=== PATIENT | female | born 1975 | race Hispanic/Latino ===

== ENCOUNTER → 2024-12-18 | Outpatient (CLI) | payer MEDICAID ==
--- NOTE | 2024-12-19 09:00 | HMCIMG ---
Exam Type: MAMMO DX BILATERAL, US BREAST BILATERAL Clinical Information: DIFFUSE CYSTIC MASTOPATHY/ABN MMG Comparison: None TECHNIQUE: Mammogram was performed with CC and MLO and ML projections. CAD was performed. CAD shows no worrisome regions. FINDINGS: The breasts are extremely dense, which lowers the sensitivity of mammography. No dominant masses are seen by mammography. By ultrasound, there are multiple bilateral dilated retroareolar ducts. A nasogastric, there are multiple hypoechoic nodules or cysts, some simple stomach some complex, scattered throughout both breasts. Largest on the left side are at the 1:00 position measuring 12 mm, 8:00 position measuring 11 mm, and 11:00 position measuring 11 mm. Smaller ones are seen on the right. There is no nipple retraction or skin thickening. Benign-appearing calcifications are seen. IMPRESSION: 1. Probably benign complex cysts or nodules both sides for which six-month follow-up bilateral breast ultrasound recommended.. BI-RADS: CATEGORY 3: PROBABLY BENIGN-SHORT INTERVAL FOLLOW-UP SUGGESTED Note: A negative x-ray should not delay biopsy if a dominant or clinically suspicious mass is present, since 8-10% of cancers are not identified by mammography. Dense breasts particularly, may obscure an underlying neoplasm.
== END | disposition home or self-care (01) ==
LOC: RAH 14:09
PROVIDERS: ATTEND Family Medicine
DX: N60.11 Diffuse cystic mastopathy of right breast (principal); N60.12 Diffuse cystic mastopathy of left breast; R92.343 Mammographic extreme density, bilateral breasts; R92.1 Mammographic calcification found on diagnostic imaging of breast
CPT/HCPCS: 77066